=== PATIENT | female | born 1980 | race Two or more races ===

== ENCOUNTER 2022-08-15 14:43 | Emergency (ER) | payer MEDICAID, OTHER ==
[~2022-08-15] VITALS: Ht 162.6 cm; Wt 60.3 kg
[2022-08-15] MEDS ORDERED: HYDROcodone-ACET 5/325MG TAB PO ONE (17:15)
[2022-08-15] MEDS ORDERED: IBUP600T28 PO (17:19)
[2022-08-15] MEDS ORDERED: CYCL-839 PO (17:19)
[2022-08-15 19:21] VITALS: BP 112/67
== END 2022-08-15 19:23 | disposition home or self-care (01) ==
LOC: ER 14:43
DX: S52.611A Displaced fracture of right ulna styloid process, initial encounter for closed fracture (principal); S13.9XXA Sprain of joints and ligaments of unspecified parts of neck, initial encounter; S63.602A Unspecified sprain of left thumb, initial encounter; Z79.1 Long term (current) use of non-steroidal anti-inflammatories (NSAID); Z79.899 Other long term (current) drug therapy; V89.2XXA Person injured in unspecified motor-vehicle accident, traffic, initial encounter; Y93.89 Activity, other specified; Y92.89 Other specified places as the place of occurrence of the external cause; Y99.8 Other external cause status
CPT/HCPCS: 72040; 73110; 73130